=== PATIENT | male | born 2000 | race Caucasian/White ===

== ENCOUNTER 2025-04-05 12:21 | Emergency (ER) | payer OTHER, SELFPAY ==
[2025-04-05 12:26] VITALS: BP 125/70; PULSE 77; RESP 18; TEMP 37.1; O2SAT 99; BMI 33.9
--- OUTSIDE RECORDS SUMMARY | 2025-04-05 12:44 | XMS_ITS | Clinical Summary ---
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 Primary Care Provider + Source Comments [facility] is fully rolled out with thefollowing exceptions:[facility] Allergies No known active allergies Medications omeprazole (PriLOSEC) 40 MG delayed release capsule Take 1 Cap (40 mg total) by mouth 1 time a day Granules should not be chewed or crushed. 30 Cap 0 04/19/2015 Active Social History Tobacco Use Types Packs/Day Years Used Date Smoking Tobacco: Never Assessed Sex and Gender Information Value Date Recorded Sex Assigned at Not on file Legal Sex Male 3:12 PM EDT Gender Identity Not on file Sexual Orientation Not on file Last Filed Vital Signs Vital Sign Reading Time Taken Comments Blood Pressure 143/67 04/19/2015 4:13 PM EDT Pulse 72 04/19/2015 4:13 PM EDT Temperature 36.8 C (98.2 F) 04/19/2015 4:13 PM EDT Respiratory Rate 24 04/19/2015 4:13 PM EDT Oxygen Saturation - - Inhaled Oxygen Concentration - - Weight 97.4 kg (214 lb 11.7 oz) 04/19/2015 4:11 PM EDT Height - - Body Mass Index - - Plan of Treatment Health Maintenance Due Date Last Done Comments MMR IMMUNIZATION (1 of 1 - S tandard series) 1999 DTAP/Tdap/Td IMMUNIZATION (1 - Tdap) 2005 VARICELLA IMMUNIZATION (1 of 2 - 13+ 2-dose series) 2011 HPV IMMUNIZATION (1 - Male 3 -dose series) 2013 HEPATITIS B IMMUNIZATION (1 of 3 - 19+ 3-dose series) 2017 COVID-19 Vaccine (1 - 2023-2 5 season) 2024 AMB SEASONAL FLU VACCINE (#1) 06/15/2025 HIB IMMUNIZATION Aged Out No longer e ligible based on patient's age to complete this topic IPV IMMUNIZATION Aged Out No longer e ligible based on patient's age to complete this topic MCV4 IMMUNIZATION Aged Out No longer eligible based on patient's age to complete this topic MENINGOCOCCAL B VACCINE Aged Out No l onger eligible based on patient's age to complete this topic PNEUMOCOCCAL IMMUNIZATION Aged Out No longer eligible based on patient's age to complete this topic Respiratory Syncytial Virus (RSV) <20mo Aged Out No longer eligible b ased on patient's age to complete this topic Insurance [facility] Member Subscriber Plan / Payer (Ef fective 2015-Present) Name:Mateo Dunne Relation to Subscriber:Self Name:Mateo Dunne Payer ID:[id number] (NAIC) Group ID:[id number] Type:HMO Medicaid Address: [place], [place] Care Teams Burlesque Dancer Relationship Specialty Start Date End Date Vamshi Rodriguez M.D. [employer] [place] [id number] PCP - General External Family Practice 04/19/15
--- NOTE | 2025-04-05 12:48 | PC.NURSE ---
1226- patient triaged and placed back in lobby until a treatment room becomes available.
[2025-04-05 14:28] VITALS: BP 124/78; PULSE 57; RESP 16; TEMP 36.7; O2SAT 100
--- NOTE | 2025-04-05 14:30 | PC.NURSE ---
patient pulled back to triage for a vital sign assessment. all vitals documented in the chart. patient sent back to the lobby until a treatment room available.
[2025-04-05 15:22] VITALS: BP 116/72; PULSE 54; O2SAT 94
[2025-04-05 15:30] VITALS: BP 115/68; PULSE 56; O2SAT 99
[2025-04-05 16:00] VITALS: BP 122/69; PULSE 59; O2SAT 98
[2025-04-05] MEDS: ACETAMINOPHEN 500MG TAB 1000 MG PO (16:29)
[2025-04-05] MEDS: METHOCARBAMOL 500MG TABLET 1500 MG PO (16:29)
[2025-04-05] MEDS: LIDOCAINE 5% TRANSDERMAL PATCH 1 EACH TD (16:30)
[2025-04-05] MEDS: IBUPROFEN 400 MG TABLET 800 MG PO (16:31)
--- NOTE | 2025-04-05 17:06 | ED_ITS ---
Discharge Plan Disposition Patient Disposition: Home, Self-Care Condition: Good Prescriptions Prescriptions: New methocarbamol 750 mg tablet 1,500 mg PO Q8H 7 Days Qty: 42 0RF Referrals Follow up/Referrals: Kevin Dougherty [Primary Care Provider, Medical] - See instructions Activity Restrictions/Add. Instructions Additional Instructions/Restrictions: Please take Ibuprofen and Tylenol for pain. You can take Robaxin for muscle relaxation. If any new or worsening symptoms please return. I have given you 1 week off of work, if you are significantly better within that time you may consider seeing your family doctor for medical clearance to return to work. Clinical Impressions Clinical Impression: Lumbar paraspinal muscle spasm Stand Alone Forms Stand Alone Forms: Work/School Release Print Language Print Language: Hungarian Discharge ED Provider: Johan Ann Adult HPI General Chief complaint: PAIN Stated complaint: R side lower back/Pop Time Seen by Provider: 04/05/25 15:24 Mode of Arrival: Ambulatory Source of Information: Patient Description of Symptoms (Recalled from ER Triage Doc. by RN): patient presents to the ED after being impatient with equipment on Tuesday and injured his back . Patient was at work when it happened. patient currently rates the pain 8/10 when moving, 4-5/10 when sitting still. Patinet endoresed a pop sensation this morning. History of Present Illness HPI narrative: This is a 24-year-old male patient, with no significant past medical history of daily medications, who is presenting to the emergency department today for evaluation of lower back pain. Patient states that on Tuesday he was at work and he was lifting a heavy retainer a wall that was approximately a couple of 100 pounds. He felt some pain in his back with significant stiffness over the next several days he was instructed to take off work, however he returned to work earlier than instructed to by his employer. Today he was throwing some trash out and performing a twisting motion in his back when he felt a sharp spasm in the right paraspinal musculature extending down to the level of the hip. Since that time he has had difficulty with range of motion of his back and hips with significant pain. He has had no difficulty with urination, no urinary retention or urinary incontinence, no lower extremity radiculopathy, no saddle anesthesia, no motor deficits of the lower extremities.. Related Data Previous Rx's ?Medication ?Instructions ?Recorded methocarbamol 750 mg tablet 1,500 mg (2 x 750 mg) PO Q 8H 7 04/05/25 days #42 tabs Allergies Allergy/AdvReac Type Severity Reaction Status Date / Time No Known Allergies Allergy Verified 04/05/25 14:30 [facility] Disclaimer: The information contained in this section may have been updated after the patient was seen, as this information can be updated by other users. Social History Smoking Status: Never smoker alcohol intake: never current occupational status: unemployed Travel in the last 8 weeks?: None ROS Obtained: Yes Systems reviewed as appropriate & no additional complaints except as documented Physical Exam General General appearance: other (See MDM) Respiratory Respiratory exam: Present other (See MDM) Cardiovascular Cardiovascular exam: Present other (See MDM) Neurological Exam Neurological exam: Present other (See MDM) Medical Decision Making Medical Records Medical records reviewed: Yes I reviewed the patient's medical records. Screening: Per USPSTF and CDC recommendations, given the prevalence of disease in our region, it is our hospital?s policy to screen for HIV and viral Hepatitis for all patients aged 18 and over and those with ongoing risk factors. Nam Inquiry Pt receiving controlled substance: No Nam was queried for this patient: No Vital Signs: 04/05/25 12:26 04/05/25 14:28 04/05/25 15:22 Temperature 98.7 F 98.1 F Temperature Source Temporal Artery Scan Temporal Artery Scan Pulse Rate 57 L 54 L Pulse Rate [Right Radial] 77 Respiratory Rate 18 16 Blood Pressure 124/78 116/72 Blood Pressure [Right Arm] 125/70 Blood Pressure Mean [Right Arm] 88 Blood Pressure Source Automatic Cuff Blood Pressure Source [Right Arm] Automatic Cuff Blood Pressure Position Sitting Blood Pressure Position [Right Arm] Sitting 02 Sat by Pulse Oximetry 99 100 94 L Oxygen Delivery Method Room Air Room Air 04/05/25 15:30 04/05/25 16:00 Temperature Temperature Source Pulse Rate 56 L 59 L Pulse Rate [Right Radial] Respiratory Rate Blood Pressure 115/68 122/69 Blood Pressure [Right Arm] Blood Pressure Mean [Right Arm] Blood Pressure Source Blood Pressure Source [Right Arm] Blood Pressure Position Blood Pressure Position [Right Arm] 02 Sat by Pulse Oximetry 99 98 Oxygen Delivery Method Orders (Tests/Meds): ED MEDICATIONS Discontinued Medications Generic Name Dose Route Start Last Admin Trade Name Freq PRN Reason Stop Dose Admin Acetaminophen 1,000 mg 04/05/25 16:21 04/05/25 16:29 Acetaminophen 500mg Tab PO 04/05/25 16:22 1,000 mg ONCE ONE Administration Ibuprofen 800 mg 04/05/25 16:21 04/05/25 16:31 Ibuprofen 400 Mg Tablet PO 04/05/25 16:22 800 mg ONCE ONE Administration Lidocaine 1 each 04/05/25 16:21 04/05/25 16:30 Lidocaine 5% Transdermal Patch TD 04/05/25 16:22 1 each ONCE ONE Administration Methocarbamol 1,500 mg 04/05/25 16:21 04/05/25 16:29 Methocarbamol 500mg Tablet PO 04/05/25 16:22 1,500 mg ONCE ONE Administration Medical Decision Narrative: In summary, this is a 24-year-old male patient who is presented to the emergency department today for evaluation of a lower back injury. This patient has no comorbidities that would complicate their medical management or care. On initial evaluation of the patient they were resting comfortably in no acute distress and nontoxic in appearance. They are hemodynamically stable, saturating well room air, and are neurologically intact. On physical examination the patient he is a appropriately alert and interactive. GCS 15. No chest wall tenderness. No abdominal wall tenderness. Heart and lungs clear to auscultation bilaterally. Regarding his lower back, he has no C, T, or L-spine tenderness. He has full range of motion of his hips. He has normal sensation in all terminal nerve distributions of the bilateral lower extremities. He does have tenderness within the muscle belly along the right side of his lumbar spine. He also has tenderness within the right buttock. Differential diagnosis includes muscle spasm, muscle strain, piriformis syndrome, among others. I have a very low suspicion for acute spinal pathology or spinal compression syndrome given the fact that he has no lower extremity radiculopathy, no saddle anesthesia, no urinary retention, and no other red flag back symptoms. He is not currently an IV drug user. Initial interventions included a lidocaine patch as well as Robaxin, ibuprofen, and Tylenol. On repeat evaluation of the patient he is able to ambulate without difficulty and feels much improved. He is asking if we can discharge him home with a work note and I do feel that this is appropriate given that his return to work ea rlier than recommended last time resulted in a reinjury of his back. We will prescribe Robaxin for pain at home as well as instruction to take ibuprofen and Tylenol as well. Return precautions have been given. At this time all questions have been answered and all parties are agreeable to decision to discharge home Critical Care Critical Care Time Critical Care Time: No
[2025-04-05 17:43] VITALS: BP 139/87; PULSE 87; RESP 19; TEMP 36.9; O2SAT 98
== END 2025-04-05 17:44 | disposition home or self-care (01) ==
PROVIDERS: Emergency Provider Student in an Organized Health Care Education/Training Program; PCP Pediatrics
DX: M62.830 Muscle spasm of back (principal); M54.50 Low back pain, unspecified
CPT/HCPCS: 99283